=== PATIENT | male | born 1995 | race Caucasian/White ===

== ENCOUNTER 2024-03-06 12:32 | Emergency (ER) | payer OTHER, SELFPAY ==
--- NOTE | ~2024-03-06 | XR_ITS ---
EXAMINATION: XR CHEST CLINICAL INFORMATION: Shortness of breath COMPARISON: None available. TECHNIQUE: 2 views of the chest were obtained. FINDINGS: Cardiomediastinal silhouette is stable and normal. No abnormal tracheal deviation. There is mild hyperinflation of the lungs as best seen on the lateral view with increased retrosternal lucency. The lungs otherwise however essentially appear clear. No evidence of focal consolidation, changes of congestion, pleural effusions or pneumothorax. Regional skeleton is intact. Visualized upper abdomen is unremarkable. XR/XR chest 2V IMPRESSION: No acute pulmonary process.
[2024-03-06 12:36] VITALS: BP 155/83; BP 195/93; PULSE 88; PULSE 90; RESP 18; TEMP 36.8; O2SAT 100; O2SAT 98; BMI 32.1
--- NOTE | 2024-03-06 12:40 | ED.ANXIETY ---
HPI - Anxiety General Chief Complaint: Anxiety Stated Complaint: SOB, PANIC ATTACK Time Seen by Provider: 03/06/24 12:39 Source: patient and EMS Mode of arrival: EMS Limitations: no limitations History of Present Illness ED Provider: Trinity Beltran APRN HPI narrative: 28 yo male with history of hypertension here with complaints of episode of shortness of breathing, racing heart, numbness/tingling in hands/feet while sitting down which lasted for about 15-20 minutes and is now resolved. No associated chest pain, dizziness, headache, vomiting, Had similar episode in November. Followed up with his PCP. [place] that his heart rate was lower and so his metoprolol dose was decreased to 25mg orally. Has felt fine since then. denies any alcohol, tobacco or drug use. Denies recent stressors. Related Data Allergies Allergy/AdvReac Type Severity Reaction Status Date / Time No Known Allergies Allergy Verified 03/06/24 12:40 Review of Systems Review of Systems: Yes all other systems are reviewed and are negative Constitutional: Constitutional: Reports no additional constitutional complaints, Denies body ache(s), Denies chills, Denies fever(s), Denies headache(s) and Denies weakness Eyes: Eyes: Reports no additional eye complaints and Denies change in vision ENT: Reports system reviewed and no additional complaints, except as documented, Denies dizziness, Denies headache(s), Denies nasal congestion, Denies nasal discharge and Denies neck pain Cardiovascular: Cardiovascular: Reports no additional cardiovascular complaints, Denies chest pain, Denies leg edema, Reports palpitations and Reports dyspnea Respiratory: Respiratory: Reports no additional respiratory complaints, Denies cough and Reports dyspnea Gastrointestinal: Gastrointestinal: Reports no additional gastrointestinal complaints, Denies abdominal pain, Denies diarrhea, Denies nausea and Denies vomiting Genitourinary: Genitourinary: Denies urinary incontinence Musculoskeletal: Musculoskeletal: Reports no additional musculoskeletal complaints, Denies back pain, Denies arthralgias, Denies joint swelling, Denies neck pain, Reports numbness and Reports tingling Integumentary/Breasts: Skin/Breast: Reports system reviewed and no additional complaints, except as docu and Denies rash Neurologic: Reports system reviewed and no additional complaints, except as documented, Denies Abnormal speech present, Denies dizziness, Denies headache(s), Reports numbness, Reports tingling and Denies weakness Endocrine: Endocrine: Reports palpitations [facility] Past Medical History Attestation statement: The following information was validated with the patient. Source: old records reviewed and nursing notes reviewed Social History Social History Advance Directives: No Advance Directives Information Provided: No Do you have a plan to hurt others: No Plan Physical Exam Vital Signs: Vital Signs: Last Vital Signs Temp 98.3 F 03/06/24 15:34 Pulse 80 03/06/24 15:34 Resp 16 03/06/24 15:34 BP 130/70 03/06/24 15:34 Pulse Ox 97 03/06/24 15:34 O2 Del Method Room Air 03/06/24 15:34 BMI result Body Mass Index 32.1 Const: General: cooperative, healthy appearing, comfortable and no acute distress Orientation/consciousness: patient oriented x3 Limitations: no limitations HEENT: Head: Yes normal to inspection Ears: hearing grossly normal bilaterally General nose exam: Normal external nose present Face and sinus: Yes normal facial exam Mouth: Normal oral and palatal mucosa present Throat: Yes posterior oropharynx normal Eyes: General: appearance normal, both eyes and all related structures Pupils: Equal, round and reactive pupils present Neck: Neck: Yes normal visual inspection Chest: Chest palpation & inspection: normal inspection of the chest Resp: Effort & Inspection: normal respiratory effort Auscultation: clear to auscultation bilaterally Cardio: Rate: regular rate Rhythm: regular rhythm Peripheral pulses: Peripheral pulses 2+ throughout GI: Inspection: Yes normal to inspection Palpation (GI): Soft to palpation and nontender Auscultation: normal bowel sounds Back/Spine/Pelvis: Thoracic/Lumbar Spine: thoracic and lumbar spine normal to inspection Skin: General skin exam: no rashes or lesions noted Neuro: General: patient oriented x3, no focal motor deficits and normal sensation to monofilament Cranial nerves: Yes Equal, round and reactive pupils present Cognition (Neuro): normal cognition Speech: No Abnormal speech present Gait exam (Neuro): Normal gait present Motor exam (neuro): 5/5 motor strength present throughout Extrem: General: Yes normal to inspection, Yes no pedal edema and Yes no calf tenderness Course Course Course Narrative: Patient has had 2- troponins has had a nonischemic EKG and workup since being here in the emergency room. He has felt well on his arrival and has had no additional symptoms since being here. I will discharge him home and have him follow up outpatient with primary care doctor. Reviewed worrisome signs and symptoms of when to return to the emergency room. Comfortable plan for discharge home Medical Decision Making Medical Decision Making [facility] Narrative: 28 yo male with history of hypertension here with complaints of episode of shortness of breathing, racing heart, numbness/tingling in hands/feet while sitting down which lasted for about 15-20 minutes and is now resolved. No associated chest pain, dizziness, headache, vomiting, Had similar episode in November. Followed up with his PCP. [place] that his heart rate was lower and so his metoprolol dose was decreased to 25mg orally. Has felt fine since then. denies any alcohol, tobacco or drug use. Denies recent stressors. On arrival all s/s are resolved.VSS. Will obtain labs, EKG, CXR Differential Diagnosis Differential Diagnoses: The differential diagnosis associated with the presentation includes Anxiety Doubt ACS with atypical HPI, 2- troponins and a nonischemic EKG Doubt PE with perc 0 Doubt aortic dissection with gradual onset of symptoms, intermittent symptoms which have improved with time Doubt PTX with unremarkable chest x-ray and clear lung sounds Doubt pericarditis or myocarditis with normal EKG and normal troponin Admission/Observation Consideration of admission/observation: Escalation of care including admission/observation considered History of present illness is atypical for ACS with a heart score that is 0 so I do not believe that inpatient hospitalization or Cardiology consultation is necessary Lab Data [facility] Lab Attestation statement: I reviewed the patient's lab results. 03/06/24 13:23 03/06/24 13:23 Labs: Lab Results 03/06/24 03/06/24 Range/Units 13:23 15:40 WBC 6.7 (4.8-10.8) X10*3/uL RBC 5.14 (4.60-5.80) X10*6/uL Hgb 16.0 (14.0-18.0) g/dl Hct 44.3 (42.0-52.0) % MCV 86.2 (80.0-98.0) fL MCH 31.1 (27.0-33.0) pg MCHC 36.1 H (31.0-36.0) g/dl RDW 12.4 (11.0-16.0) % Plt Count 332 (160-400) X10*3/uL MPV 8.9 L (9.4-12.4) fL Immature Gran % (Auto) 0.3 (0.0-0.4) % Neut % (Auto) 66.0 (45-73) % Lymph % (Auto) 21.7 (20-40) % Gem % (Auto) 8.9 (2-11) % Eos % (Auto) 1.6 (0-4) % Baso % (Auto) 1.5 (0-2) % Lymph # (Auto) 1.5 (1.2-4.9) X10*3/uL Gem # (Auto) 0.6 (0.1-1.2) X10*3/uL Eos # (Auto) 0.1 (0.0-0.4) X10*3/uL Baso # (Auto) 0.1 (0.0-0.2) X10*3/uL Abs Immat Gran (auto) 0.02 (0.00-0.03) X10*3/uL Absolute Neuts (auto) 4.5 (2.0-8.3) x10*3/uL Absolute Nucleated RBC 0.000 (0.0-0.012) X10*3/uL Nucleated RBC % (auto) 0.0 (0.0-0.2) /100WBC Sodium 140 (135-145) mmol/L Potassium 3.9 (3.3-5.1) mmol/L Chloride 106 (96-108) mmol/L Carbon Dioxide 26 (22-29) mmol/L Anion Gap 12 (12-20) BUN 17 H (9-16) mg/dL Creatinine 1.35 (0.5-1.4) mg/dL Estim Creat Clear Calc 110.0 Estimated GFR > 60 Random Glucose 101 (60-115) mg/dL Calcium 10.2 (8.4-10.2) mg/dL Magnesium 2.0 (1.6-2.6) mg/dL Total Bilirubin 1.3 H (0.0-1.0) mg/dL Direct Bilirubin 0.4 (0.0-0.5) mg/dL AST 21 (5-37) U/L ALT 27 (0-40) U/L Alkaline Phosphatase 86 (39-117) U/L Troponin I High Sens < 2.7 < 2.7 (<3.5-35.0) ng/L Total Protein 7.3 (6.5-8.0) g/dL Albumin 4.5 (3.5-5.0) g/dL Independent Interpretation I performed an independent interpretation of an: EKG and Plain X-Ray Interpretation: I independently reviewed the EKG which shows normal sinus rhythm with a rate of 75, normal AR, normal QRS normal QT I independently reviewed the CXR and agree with the rad report Radiology Impression Discussion of test interpretation with radiology: I have reviewed the radiologist's reading. Radiologist Impression: [place] [id number] XRay Report Signed Patient: Markie Armas MR#: [id number] : 1995 Acct:[id number] Age/Sex: 28 / M ADM Date: 03/06/24 Loc: .ED Attending Dr: Ordering Physician: Trinity Joyce NP Date of Service: 03/06/24 Procedure(s): XR chest 2V Accession Number(s): [id number] cc: MJ LY MD; Trinity Joyce NP~ EXAMINATION: XR CHEST CLINICAL INFORMATION: Shortness of breath COMPARISON: None available. TECHNIQUE: 2 views of the chest were obtained. FINDINGS: Cardiomediastinal silhouette is stable and normal. No abnormal tracheal deviation. There is mild hyperinflation of the lungs as best seen on the lateral view with increased retrosternal lucency. The lungs otherwise however essentially appear clear. No evidence of focal consolidation, changes of congestion, pleural effusions or pneumothorax. Regional skeleton is intact. Visualized upper abdomen is unremarkable. XR/XR chest 2V IMPRESSION: No acute pulmonary process. Independent Historian Clinical information obtained from an independent historian. History obtained from or confirmed by: Parent and EMS Tests considered The following testing was considered but not selected: Perc 0, no need for CTA imaging Discharge Plan Discharge Clinical Impression: Shortness of breath Patient Disposition: Home, Self-Care Instructions: Shortness of Breath (ED) Additional Instructions: Your EKG is normal. Your lab work including 2 sets of cardiac enzymes are negative. Your chest x-ray is normal. Please follow-up with your primary care doctor outpatient. Please return for any worsening symptoms or additional concerns Referrals: Mj Ly MD [Primary Care Provider] - 1 week Print Language: Guyanese
--- NOTE | 2024-03-06 12:41 | ECG_ITS ---
Test Reason : CHEST PAIN Blood Pressure : / mmHG Vent. Rate : 075 BPM Atrial Rate : 075 BPM P-R Int : 134 ms QRS Dur : 094 ms QT Int : 372 ms P-R-T Axes : 039 017 021 degrees QTc Int : 415 ms Normal sinus rhythm with sinus arrhythmia Normal ECG No previous ECGs available Referred By: Trinity Beltran Electronically Signed By:FABIO PETER MD
[2024-03-06 13:31] LABS: MANUAL DIFF FLAG NO
[2024-03-06 13:33] LABS: Basophils Absolute Auto 0.1 X10*3/uL (0.0-0.2); Basophils Percent Auto 1.5 % (0-2); Eosinophils Absolute Auto 0.1 X10*3/uL (0.0-0.4); Eosinophils Percent Auto 1.6 % (0-4); Hematocrit 44.3 % (42.0-52.0); Imm Gran Abs Auto 0.02 X10*3/uL (0.00-0.03); Imm Gran Pct Auto 0.3 % (0.0-0.4); Lymphocytes Absolute Auto 1.5 X10*3/uL (1.2-4.9); Lymphocytes Percent Auto 21.7 % (20-40); Mean Corpuscular HGB Conc 36.1 g/dl (31.0-36.0); Mean Corpuscular Hemoglobin 31.1 pg (27.0-33.0); Mean Corpuscular Volume 86.2 fL (80.0-98.0); Mean Platelet Volume 8.9 fL (9.4-12.4); Monocytes Absolute Auto 0.6 X10*3/uL (0.1-1.2); Monocytes Percent Auto 8.9 % (2-11); Neutrophils Absolute Auto 4.5 x10*3/uL (2.0-8.3); Platelet Count 332 X10*3/uL (160-400); Red Blood Count 5.14 X10*6/uL (4.60-5.80); Red Cell Distribution Width 12.4 % (11.0-16.0); White Blood Count 6.7 X10*3/uL (4.8-10.8)
[2024-03-06 13:48] LABS: Alanine Aminotransferase 27 U/L (0-40); Albumin Level 4.5 g/dL (3.5-5.0); Alkaline Phosphatase 86 U/L (39-117); Anion Gap 12 (12-20); Aspartate Amino Transferase 21 U/L (5-37); Bilirubin Direct 0.4 mg/dL (0.0-0.5); Bilirubin Total 1.3 mg/dL (0.0-1.0); Blood Urea Nitrogen 17 mg/dL (9-16); Calcium 10.2 mg/dL (8.4-10.2); Carbon Dioxide 26 mmol/L (22-29); Chloride 106 mmol/L (96-108); Estimated Glomerular Filt Rate > 60; Glucose Random 101 mg/dL (60-115); Potassium 3.9 mmol/L (3.3-5.1); Sodium 140 mmol/L (135-145); Total Protein 7.3 g/dL (6.5-8.0)
[2024-03-06 13:57] LABS: Troponin-I High Sensitivity < 2.7 ng/L (<3.5-35.0)
[2024-03-06 15:34] VITALS: BP 130/70; PULSE 80; RESP 16; TEMP 36.8; O2SAT 97
[2024-03-06 16:17] LABS: Troponin-I High Sensitivity < 2.7 ng/L (<3.5-35.0)
[2024-03-06 16:43] VITALS: BP 133/77; PULSE 64; RESP 16; TEMP 36.7; O2SAT 96
== END 2024-03-06 16:51 | disposition home or self-care (01) ==
PROVIDERS: Nurse Practitioner Family; Emergency Provider Emergency Medicine; PCP Internal Medicine
DX: R06.02 Shortness of breath (principal); R00.2 Palpitations; F41.0 Panic disorder [episodic paroxysmal anxiety]; I49.8 Other specified cardiac arrhythmias; I10 Essential (primary) hypertension; Z79.899 Other long term (current) drug therapy
CPT/HCPCS: 36415; 71046; 80048; 80076; 83735; 84484; 85025; 93005; 99284

== ENCOUNTER → 2024-03-06 12:41 | Outpatient (BNV) | payer OTHER, SELFPAY | PROVIDERS: Emergency Provider Emergency Medicine; PCP Internal Medicine; Visit Provider Internal Medicine Cardiovascular Disease | DX: R07.9 Chest pain, unspecified (principal) | CPT/HCPCS: 93010 ==

== ENCOUNTER 2024-03-28 08:07 | Emergency (ER) | payer OTHER, SELFPAY ==
--- NOTE | 2024-03-28 08:11 | ED_ITS ---
HPI - General Adult General Chief complaint: Nausea/Vomiting/Diarrhea Stated complaint: DIZZY,NAUSEA,FELT FAINT PER EMS Time Seen by Provider: 03/28/24 08:11 History of Present Illness ED Provider: Lobo VALDEZ narrative: The patient is a 28-year-old male with a history of hypertension. He is on 5 mg of amlodipine daily and he has also been on 25 mg of metoprolol succinate daily. He has been on these medications for a few years. Additionally he has been restarted on Lexapro. The patient was seen in the emergency department 3 weeks ago for an episode of palpitations and other symptoms. He had a negative workup. I believe his PCP thought that this might have been a panic attack and therefore started the Lexapro. This morning the patient was getting ready to take a shower when he felt lightheaded and nauseated. He felt as if he might pass out. He sat down and he said that his vision seemed a narrow. He says that he felt his pulse and he thought that it was going extremely slowly. He ultimately became nauseated and vomited and ultimately felt better. During this time his girlfriend had called 911. An ambulance arrived and brought him to the emergency room. He is feeling much better on arrival in the emergency room. He says this episode is fairly similar to the episode he had 3 weeks ago but not identical. He did not vomit on the previous occasion. He denies any significant chest pain or shortness of breath. No headache. Related Data Allergies Allergy/AdvReac Type Severity Reaction Status Date / Time No Known Allergies Allergy Verified 03/28/24 08:25 Review of Systems 2 Review of Systems: Yes all other systems are reviewed and are negative [facility] Social History Social History Advance Directives: No Advance Directives Information Provided: No Physical Exam ED Vital Signs: Vital Signs - 24 hr 03/28/24 08:22 03/28/24 09:39 03/28/24 09:46 Temperature 98.1 F 98 F Pulse Rate 71 67 Respiratory Rate 16 16 Blood Pressure 150/92 H 129/85 129/85 Pulse Oximetry 99 99 Oxygen Delivery Method Room Air Room Air BMI result Body Mass Index 32.1 Const Other: The patient has a large 28-year-old male who was awake and alert and who does not look in acute distress. Orientation/consciousness: patient oriented x3 HENMT Head: Yes normal to inspection Face and sinus: Yes normal facial exam Mouth: Normal oral and palatal mucosa present and moist mucous membranes Eyes General: appearance normal, both eyes and all related structures Conjunctivae: conjunctivae normal EOM: EOMs intact bilaterally Neck Neck: Yes no JVD Resp Effort & Inspection: normal respiratory effort Auscultation: clear to auscultation bilaterally Cardio Rate: regular rate Rhythm: regular rhythm Heart sounds: S1 normal heart sound present and S2 normal heart sound present GI Other: Abdomen is soft and nontender Neuro General: patient oriented x3 Cranial nerves: Yes CN's II-XII intact bilaterally Motor exam (neuro): 5/5 motor strength present throughout Extrem General: Yes full ROM, Yes no pedal edema and Yes no calf tenderness Medications Administered Discontinued Medications Generic Name Dose Route Start Last Admin Trade Name Freq PRN Reason Stop Dose Admin Amlodipine Besylate 5 mg 03/28/24 08:25 03/28/24 09:39 Amlodipine Besylate 5 Mg Tablet PO 03/28/24 08:26 5 mg ONCE ONE Administration Protocol Sodium Chloride 1,000 mls @ 999 mls/hr 03/28/24 08:30 03/28/24 09:46 Ns IV 03/28/24 09:30 Not Given .Q1H1M [facility] Medical Decision Making Medical Decision Making [facility] Narrative: The patient essentially asymptomatic at arrival in the emergency department aside from possibly some lingering nausea. No chest pain or shortness of breath. Vital signs are stable. EKG is normal. The patient seems to have had an episode of near-syncope. The patient states that he thinks he was quite bradycardic during the episode. Whether this was some kind of vasovagal episode without a clear trigger or whether this was some kind of a panic episode is hard to say for sure. He is not describing any symptoms that would make me worry about a more ominous cardiac or vascular or pulmonary problem. The patient's EKG is normal, basic metabolic panel and CBC are unremarkable. I think the patient may be discharged to follow up with his regular doctor. I am advising the patient that it would be reasonable for him to stop his metoprolol since he felt he was quite bradycardic during this near syncopal episode. Additionally he should discuss possibly getting a Holter monitor. Lab Data 03/28/24 08:36 03/28/24 08:36 Labs: Lab Results 03/28/24 Range/Units 08:36 WBC 8.2 (4.8-10.8) X10*3/uL RBC 5.21 (4.60-5.80) X10*6/uL Hgb 16.4 (14.0-18.0) g/dl Hct 45.1 (42.0-52.0) % MCV 86.6 (80.0-98.0) fL MCH 31.5 (27.0-33.0) pg MCHC 36.4 H (31.0-36.0) g/dl RDW 12.1 (11.0-16.0) % Plt Count 287 (160-400) X10*3/uL MPV 9.1 L (9.4-12.4) fL Immature Gran % (Auto) 0.2 (0.0-0.4) % Neut % (Auto) 70.2 (45-73) % Lymph % (Auto) 18.1 L (20-40) % [place] % (Auto) 8.2 (2-11) % Eos % (Auto) 2.2 (0-4) % Baso % (Auto) 1.1 (0-2) % Lymph # (Auto) 1.5 (1.2-4.9) X10*3/uL [place] # (Auto) 0.7 (0.1-1.2) X10*3/uL Eos # (Auto) 0.2 (0.0-0.4) X10*3/uL Baso # (Auto) 0.1 (0.0-0.2) X10*3/uL Abs Immat Gran (auto) 0.02 (0.00-0.03) X10*3/uL Absolute Neuts (auto) 5.7 (2.0-8.3) x10*3/uL Absolute Nucleated RBC 0.000 (0.0-0.012) X10*3/uL Nucleated RBC % (auto) 0.0 (0.0-0.2) /100WBC Sodium 140 (135-145) mmol/L Potassium 3.9 (3.3-5.1) mmol/L Chloride 106 (96-108) mmol/L Carbon Dioxide 24 (22-29) mmol/L Anion Gap 14 (12-20) BUN 17 H (9-16) mg/dL Creatinine 1.08 (0.5-1.4) mg/dL Estim Creat Clear Calc 137.5 Estimated GFR > 60 Random Glucose 97 (60-115) mg/dL Calcium 9.6 (8.4-10.2) mg/dL Magnesium 2.3 (1.6-2.6) mg/dL Independent Interpretation I performed an independent interpretation of an: EKG Interpretation: EKG at 09/08/2007 shows normal sinus rhythm at 65 beats per minute. It is a normal EKG. No significant change from previous EKG Discharge Plan Discharge Clinical Impression: Near syncope Patient Disposition: Home, Self-Care Additional Instructions: You had what I think was an episode of near-syncope today. Near-syncope means ?almost fainted. Since you felt that your heart rate was very low during this episode I think it would be reasonable for you to stop your metoprolol at the moment. Please plan on contacting your primary care doctor's office to discuss this further. I think it would be reasonable talk to your doctor about getting a wearable engine monitor. This is often called a Holter monitor. Please keep your appointment with your regular doctor that you have scheduled soon. Return to the emergency room if worse Referrals: Mj Pereyra MD [Primary Care Provider] - (Near-syncope) Interventions: ED Discharge Assessment Last Done: 03/28/24 09:46 Discharge Date/Time: 03/28/24 09:49 Print Language: Japanese
[2024-03-28 08:22] VITALS: BP 129/69; BP 150/92; PULSE 71; PULSE 72; RESP 16; TEMP 36.7; O2SAT 97; O2SAT 99; BMI 32.1
--- NOTE | 2024-03-28 08:24 | ECG_ITS ---
Test Reason : near syncope Blood Pressure : / mmHG Vent. Rate : 065 BPM Atrial Rate : 065 BPM P-R Int : 148 ms QRS Dur : 096 ms QT Int : 398 ms P-R-T Axes : 063 016 026 degrees QTc Int : 413 ms Normal sinus rhythm Normal ECG When compared with ECG of 06-MAR-2024 12:41, No significant change was found Referred By: Nigel Diamond Electronically Signed By:DINORA MATTHEW
[2024-03-28 08:41] LABS: MANUAL DIFF FLAG NO
[2024-03-28 08:43] LABS: Basophils Absolute Auto 0.1 X10*3/uL (0.0-0.2); Basophils Percent Auto 1.1 % (0-2); Eosinophils Absolute Auto 0.2 X10*3/uL (0.0-0.4); Eosinophils Percent Auto 2.2 % (0-4); Hematocrit 45.1 % (42.0-52.0); Hemoglobin 16.4 g/dl (14.0-18.0); Imm Gran Abs Auto 0.02 X10*3/uL (0.00-0.03); Imm Gran Pct Auto 0.2 % (0.0-0.4); Lymphocytes Absolute Auto 1.5 X10*3/uL (1.2-4.9); Lymphocytes Percent Auto 18.1 % (20-40); Mean Corpuscular HGB Conc 36.4 g/dl (31.0-36.0); Mean Corpuscular Hemoglobin 31.5 pg (27.0-33.0); Mean Corpuscular Volume 86.6 fL (80.0-98.0); Mean Platelet Volume 9.1 fL (9.4-12.4); Monocytes Absolute Auto 0.7 X10*3/uL (0.1-1.2); Monocytes Percent Auto 8.2 % (2-11); Neutrophils Absolute Auto 5.7 x10*3/uL (2.0-8.3); Neutrophils Percent Auto 70.2 % (45-73); Platelet Count 287 X10*3/uL (160-400); Red Blood Count 5.21 X10*6/uL (4.60-5.80); Red Cell Distribution Width 12.1 % (11.0-16.0); White Blood Count 8.2 X10*3/uL (4.8-10.8)
--- OUTSIDE RECORDS SUMMARY | 2024-03-28 08:47 | XMS_ITS | Continuity of Care Document ---
Author Organization [facility] ter Address [address] [place] [id number] Care Team Providers Care Metallography Teacher Name Role Phone Jordy DAMON, Troy Rosen Primary Care Physician [phone] Encounter [facility] Date(s): 09/09/19 - 09/09/[address] [address] Attending Physician: Hafsa DAMON, Mj James Allergies, Adverse Reactions, Alerts Substance Reaction Severity Status NKA Active
--- OUTSIDE RECORDS SUMMARY | 2024-03-28 08:47 | XMS_ITS | Continuity of Care Document ---
Author Organization [facility] Address [address] [place] [address]- Care Team Providers Care Dispatcher Radio Name Role Phone Mj Pereyra MD Primary Care Physician Encounter [facility] Date(s): 11/12/23 - 11/12/[address] [address]- Discharge Disposition: A-D/C Home Attending Physician: Marvin Cameron MD Admitting Physician: Marvin Cameron MD Referring Physician: Not on Staff, Referring MD Allergies, Adverse Reactions, Alerts No Known Allergies Medications amLODIPine 5 mg oral tablet 5 mg, 1, tablet, By Mouth, Daily, # 30 tablet, Refills 0, Tot. Refills 0, Maintenance, 09/29/21 18:08:00 EST, Route to Pharmacy Electronically, [facility]/pharmacy #[id number], Partial fill upon patient request if the prescription is for a schedule II opioid drug.... Start Date: 09/29/21 Status: Ordered metoprolol 50 mg oral tablet 50 mg, 1, tablet, By Mouth, Daily, Refills 0, Maintenance, 09/29/21 16:20:00 EST, Partial fill uponpatient request if the prescription is for a schedule II opioid drug. Start Date: 09/29/21 Status: Ordered simvastatin 20 mg oral tablet 20 mg, 1, tablet, By Mouth, Daily at bedtime, Refills 0, Maintenance, 09/29/21 16:20:00 EST, Partial fill upon patient request if the prescription is for a schedule II opioid drug. Start Date: 09/29/21 Status: Ordered Vital Signs Most recent to oldest [Reference Range]: 1 2 3 Height 188 cm (11/12/23 3:54 PM) Weight 115.6 kg (11/12/23 3:54 PM) Oxygen Saturation [94-100 %] 100 % (11/12/23 5:26 PM) 99 % (11/12/23 3:54 PM) 98 % (11/12/23 3:54 PM) Pulse Rate [55-90 bpm] 58 bpm (11/12/23 5:26 PM) 65 bpm (11/12/23 3:54 PM) 66 bpm (11/12/23 3:54 PM) Blood Pressure [90-138/55-84 mm Hg] 144/83mm Hg *H* (11/12/23 5:26 PM) 161/96mm Hg *H* (11/12/23 3:54 PM) Respiratory Rate [16-30 br/min] 16 br/min (11/12/23 5:26 PM) 18 br/min (11/12/23 3:54 PM) Temperature [96.8-100.4 DegF] 97.8 DegF (11/12/23 3:54 PM) Mode of Delivery (Oxygen) Room air (11/12/23 5:26 PM) Room air (11/12/23 3:54 PM) Blood pressure sites Arm, left (11/12/23:26 PM) Arm, left (11/12/23 3:54 PM) Temperature Route Temporal (11/12/23 3:54 PM) Dry Weight 115.6 kg (11/12/23 3:54 PM) Weight Obtained Via Standing scale (11/12/23 3:54 PM) Social History Social History Type Response Smoking Status Never (less than 100 in lifetime) entered on: 09/29/21 Sex Note * Jeffry Tavarez: PERFORM Event Display: Patient Education Leaflets Authored Date: [id number] Peripheral Neuropathy ?? [id number] Peripheral Neuropathy Peripheral neuropathy is a set of symptoms caused by damage to the peripheral nerves. These nerves are in parts of the body beyond the brain and spinal cord. The condition often affects the arms or legs. It causes a change in physical feeling. Symptoms include weakness in the muscles, tingling, numbness, or shooting pains. Symptoms may be more common at night. Your skin may be extra sensitive to light touch or temperature changes. Peripheral neuropathy may be caused by: ??? Complications from a chronic disease such as diabetes ??? Infections caused by viruses or bacteria ??? Autoimmune disorders ??? Cancer ??? Chemo medicines to treat cancer ??? Injuries A lack of certain vitamins may also lead to it. It may also be caused by exposure to certain illegal drugs or chemicals. Several forms of neuropathy run in families (hereditary). Home care ??? Tell your healthcare provider about all medicines you take. This includes prescription and nlxk-zzq-lfwsmkq medicines, vitamins, and herbs. Ask if any of the medicines may be causing your problems. Don't make any changes to prescription medicines without talking with your healthcare provider first. ??? You may be prescribed medicines to help ease the tingling feeling or for pain. Take all medicines as directed. ??? A numb hand or foot may be more likely to be injured. To help protect it: o Always use oven mitts. o Test water temperature with an unaffected hand or foot. o Use caution when trimming nails. File sharp areas. o Wear shoes that fit well to prevent pressure points, blisters, and ulcers. o Inspect your hands and feet carefully at least once a week. This includes thesoles of your feet and between the toes. If you see red areas, sores, or other problems, tell your healthcare provider. ?? Follow-up care Follow up with your healthcare provider as advised. You may need more testing or assessment. ?? When to seek medical advice Call your healthcare provider right away if any of the following occur: ??? Redness, swelling, cracking, or ulcer on any numb area, especially the feet ??? New symptoms of numbness or muscle weaknessnumbness ??? Loss of bowel or bladder control ??? Slurred speech, confusion, or trouble speaking, walking, or seeing ?? Last Reviewed Date: 2021 ?? [id number] [employer]. All rights reserved. This information is not intended as a substitute for professional medical care. Always follow your healthcare professional's instructions. ?? Patient Care team information Care Team Personnel Name: Mj Pereyra MD Position: Reference Physician Member Role: PCP Address: Address: [address] [place] [address], [place], [place] [address] Care Team Related Persons Name: CHARISSA HARPER Address: home [address] [place] [address] Name: CHARISSA HARPER Address: [employer] Address: home [address] [place] [address] [place] Name: JOHNNIE HARPER Address: [place] [id number]
--- OUTSIDE RECORDS SUMMARY | 2024-03-28 08:47 | XMS_ITS | Continuity of Care Document ---
Author Organization [facility] Address [address] [place] [address]- Care Team Providers Care Business Management Consultant Name Role Phone Mj Pereyra MD Primary Care Physician Encounter [facility] Date(s): 04/17/20 - 07/19/[address] [address] Discharge Disposition: A-D/C Home Attending Physician: Mj Pereyra MD Admitting Physician: Mj Pereyra MD Referring Physician: Lesvia Manzano MD, V Allergies, Adverse Reactions, Alerts Substance Reaction Severity Status NKA Active Medications amLODIPine 5 mg oral tablet 5 mg, 1, tablet, By Mouth, Daily in AM, Refills 0, Maintenance, 03/28/20 14:48:00 EDT Start Date: 03/28/20 Status: Ordered
--- OUTSIDE RECORDS SUMMARY | 2024-03-28 08:47 | XMS_ITS | Continuity of Care Document ---
Author Organization [facility] Address [address] [place] [address]- Care Team Providers Care Multiplex Operator Name Role Phone Hafsa DAMON, Mj James Primary Care Physician Encounter [facility] Date(s): 01/17/24 - 01/18/[address] [address]- Discharge Disposition: A-D/C Home Attending Physician: Josefina Cowan MD Admitting Physician: Josefina Cowan MD Referring Physician: Not on Staff, Referring MD Allergies, Adverse Reactions, Alerts No Known Allergies Medications amLODIPine 5 mg oral tablet 5 mg, 1, tablet, By Mouth, Daily, # 30 tablet, Refills 0, Tot. Refills 0, Maintenance, 09/29/21 18:08:00 EST, Route to Pharmacy Electronically, [facility]/pharmacy #[id number], Partial fill upon patient request if the prescription is for a schedule II opioid drug.... Start Date: 09/29/21 Status: Ordered metoprolol 50 mg oral tablet 50 mg, 1, tablet, By Mouth, Daily, Refills 0, Maintenance, 09/29/21 16:20:00 EST, Partial fill uponpatient request if the prescription is for a schedule II opioid drug. 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 FINDINGS: Probable nondisplaced fracture of the fifth finger distal phalanx without intra- articular extension. No dislocation. Associated soft tissue swelling. IMPRESSION: Suspected nondisplaced fracture of the fifth digit distal phalanx. WSN: [id number] Ordering Physician: Vicente Sam Dictated By: David Martínez MD Dictated Date/Time: 01/17/24 11:23 p Reviewed By: David Martínez MD Signed By: David Martínez MD Signed Date/Time: 01/17/24 11:23 pm Transcribed By: PAPA Transcribed Date/Time: 01/17/24 11:21 pm Vital Signs Most recent to oldest [Reference Range]: 1 2 Height 188 cm (01/18/24 3:42 AM) 188 cm (01/17/24 10:42 PM) Weight 120.3 kg (01/17/24 10:42 PM) Oxygen Saturation [94-100 %] 98 % (01/18/24 3:42 AM) 100 % (01/17/24 10:42 PM) Pulse Rate [55-90 bpm] 61 bpm (01/18/24 3:42 AM) 84 bpm (01/17/24 10:42 PM) Blood Pressure [90-138/55-84 mm Hg] 147/ 88mm Hg *H* (01/18/24 3:42 AM) 163/94mm Hg *H* (01/17/24 10:42 PM) Respiratory Rate [16-30 br/min] 18 br/mi n (01/17/24 10:42 PM) Temperature [96.8-100.4 DegF] 98.1 DegF (01/18/24 3:42 AM) 98.6 DegF (01/17/24 10:42 PM) Mode of Delivery (Oxygen) Room air (01/18/24 3:42 AM) Room air (01/17/24 10:42 PM) Blood pressure sites Arm, left (01/18/24 3:42 AM) Arm, left (01/17/24 10:42 PM) Temperature Route Oral (01/18/24 3:42 AM) Oral (01/17/24 10:42 PM) Dry Weight 120.3 kg (01/17/24 10:42 PM) Weight Obtained Via Standing scale (01/17/24 10:42 PM) Dry Weight Obtained Via Standing scale (01/17/24 10:42 PM) Social History Social History Type Response Smoking Status Never (less than 100 in lifetime) entered on: 09/29/21 Sex Note * Chapo DAMON, Josefina iJménez: PERFORM Event Display: Patient Education Leaflets Authored Date: [id number] Broken Finger,??Closed ?? [id number] Broken Finger,??Closed You have a broken finger (fracture). This causes local pain, swelling, and bruising. This injury usually takes??about??4 to 6 weeks??to heal, but can take longer in some cases. Finger injuries are often treated with a splint or cast, or by taping the injured finger to the next one (cherelle taping). This protects the injured finger and holds the bone in position while it heals. More serious fractures may need surgery. This would be done by an orthopedic surgeon. This is a surgeon who specializes in treating bone, muscle, joint, and tendon problems. If the fingernail has been severely injured, it will probably fall off in 1 to 2 weeks. A new fingernail will usually start to grow back within a month. Home care Follow these guidelines when caring for yourself at home: ??? Keep your hand raised (elevated) to reduce pain and swelling. When sitting or lying down, keep your arm above the level of your heart. You can do this by placing your arm on a pillow that rests on your chest or on a pillow at your side. This is most important during the first 2 days (48 hours) after the injury. ??? Put an ice pack on the injured area. Do this for 20 minutes every 1 to 2 hours the first day for pain relief. To make anice pack, put ice cubes in a plastic bag that seals at the top. Wrap the bag in a thin towel. As the ice melts, be careful that the cast or splint doesn???t get wet. Keep using the ice pack 3 to 4 times a day until the pain and swelling go away. ??? Keep the cast or splint completely dry at all times. Bathe with your cast or splint out of the water. Protect it with a large plastic bag, rubber-banded or taped at the top end. If a fiberglass cast or splint gets wet, you can dry it with a health sciences department chair on a cool setting. ??? If cherelle tape was put on and it becomes wet or dirty, change it. You may replace it with paper, plastic, or cloth tape. Cloth tape and paper tapes must be kept dry. Keep the cherelle tape in place for at least 4 weeks, or as instructed by your healthcare provider. ??? You may use acetaminophen or ibuprofen to control pain unless another pain medicine was prescribed. If you swan ve chronic liver or kidney disease, talk with your healthcare provider before using these medicines. Also talk with your provider if you???ve had a stomach ulcer or digestive tract bleeding. ??? Don???t put creams or objects under the cast if you have itching. ?? Follow-up care Follow up with your healthcare provider as advised. This is to make sure the bone is healing the way it should. X-rays may be taken. You'll be told of any new findings that may affect your care. ?? When to get medical care Call your healthcare provider right away if any of these occur: ??? The plaster cast or splint becomes wet or soft ??? The cast or splint cracks ??? The fiberglass cast or splint stays wet for more than 24 hours ??? Pain or swelling gets worse ??? Redness, warmth, swelling, drainage from the wound,or bad odor from a cast or splint ??? Finger becomes more cold, blue, numb, or tingly ??? You can???t move your finger ??? The skin around the cast or splint becomes red or swollen ??? Fever of 100.4??F (38??C) or higher, or as advised by your provider ??? Chills ?? Last Reviewed Date: 2021 ?? [id number] [employer]. All rights reserved. This information is not intended as a substitute for professional medical care. Always follow your healthcare professional's instructions. ?? Patient Care team information Care Team Personnel Name: Mj Pereyra MD Position: Reference Physician Member Role: PCP Address: Address: [address] [place] [address], [address] Care Team Related Persons Name: CHARISSA HARPER Address: home [address] [place] [address] Name: CHARISSA HARPER Address: [employer] Address: [address] Name: JOHNNIE HARPER Address: [place] [address]
--- OUTSIDE RECORDS SUMMARY | 2024-03-28 08:47 | XMS_ITS | Continuity of Care Document ---
Author Organization [facility] Address [address] [facility], [address] d Floor, [address] [place] [address] Care Team Providers Care Tape Controlled Machine Stitcher Name Role Phone Mj Pereyra MD Primary Care Physician Encounter [facility] Date(s): 12/02/23 - 01/01/24 [facility] [address] [facility] [address]rd Floor, [address] [place] [id number] Allergies, Adverse Reactions, Alerts No Known Allergies Medications amLODIPine 5 mg oral tablet 5 mg, 1, tablet, By Mouth, Daily, # 30 tablet, Refills 0, Tot. Refills 0, Maintenance, 09/29/21 18:08:00 EST, Route to Pharmacy Electronically, [facility]/pharmacy #[id number], Partial fill upon patient request if the [...] opioid drug. Start Date: 09/29/21 Status: Ordered Social History Social History Type Response Smoking Status Never (less than 100 in lifetime) entered on: 09/29/21 Sex Patient Care team information Care Team Personnel Name: Mj Pereyra MD Position: Reference Physician Member Role: PCP Address: Address: [address] [place] [id number]- Care Team Related Persons Name: CHARISSA HARPER Address: home [address] [place] [id number] Name: CHARISSA HARPER Address: [employer] Address: home [address] [place] [address] Name: JOHNNIE HARPER Address: [place] [address]
--- OUTSIDE RECORDS SUMMARY | 2024-03-28 08:47 | XMS_ITS | Continuity of Care Document ---
Author Organization [facility] Address [address] [place] [address]- Care Team Providers Care Malt Liquors Sales Representative Name Role Phone Hafsa DAMON, Mj James Primary Care Physician Encounter [facility] [place] [place] Date(s): 10/18/20 - 11/17/20 [facility] [address] [place], [place] [address] Attending Physician: Margy Greenwood Admitting Physician: AdmMargy fried Referring Physician: Admtr ArRamiro Allergies, Adverse Reactions, Alerts Substance Reaction Severity Status NKA Active Medications amLODIPine 5 mg oral tablet 5 mg, 1, tablet, By Mouth, Daily in AM, Refills 0, Maintenance, 03/28/20 14:48:00 EDT Start Date: 03/28/20 Status: Ordered
--- OUTSIDE RECORDS SUMMARY | 2024-03-28 08:47 | XMS_ITS | Continuity of Care Document ---
Author Organization [facility] Address [address] [place] [address]- Care Team Providers Care Electronic Security Technician Name Role Phone Mj Pereyra MD Primary Care Physician Encounter [facility] Date(s): 09/29/21 - 09/29/[address] [address]- Encounter Diagnosis Anxiety(Final) - 09/29/21 Hypertension, uncontrolled(Final) - 09/29/21 Dyslipidemia, goal LDL below 100(Final) - 09/29/21 Morbid obesity(Final) - 09/29/21 Discharge Disposition: A-D/C Home Attending Physician: Chalino Tubbs MD Admitting Physician: Chalino Tubbs MD Referring Physician: Not on Staff, Referring MD Allergies, Adverse Reactions, Alerts No Known Allergies Medications amLODIPine 5 mg oral tablet 5 mg, Tablet, By Mouth, Once, STAT, 09/29/21 18:06:00 EST, Stop date 09/29/21 18:06:00 EST Start Date: 09/29/21 Stop Date: 09/29/21 Status: Completed amLODIPine 5 mg oral tablet 5 mg, 1, tablet, By Mouth, Daily, # 30 tablet, Refills 0, Tot. Refills 0, Maintenance, 09/29/21 18:08:00 EST, Route to Pharmacy Electronically, [facility]/pharmacy #[id number], Partial fill upon patient request if the [...] to oldest [Reference Range]: 1 2 Height 191 cm (09/29/21 4:19 PM) Weight 120.3 kg (09/29/21 4:19 PM) Pulse Rate [55-90 bpm] 87 bpm (09/29/21 4:19 PM) Blood Pressure [90-138/55-84 mm Hg] 154/ 92mm Hg *H* (09/29/21 6:16 PM) 156/94mm Hg *H* (09/29/21 4:19 PM) Respiratory Rate [16-30 br/min] 16 br/mi n (09/29/21 4:19 PM) Temperature [96.8-100.4 DegF] 98.3 DegF (09/29/21 4:19 PM) Temperature Route Oral (09/29/21 4:19 PM) Dry Weight 120.3 kg (09/29/21 4:19 PM) Weight Obtained Via Standing scale (09/29/21 4:19 PM) Social History Social History Type Response Smoking Status Never (less than 100 in lifetime) entered on: 09/29/21 Sex
--- OUTSIDE RECORDS SUMMARY | 2024-03-28 08:47 | XMS_ITS | Continuity of Care Document ---
Author Organization [facility] Address [address] [place] [address]- Care Team Providers Care Converter Supervisor Name Role Phone Hafsa DAMON, Mj James Primary Care Physician Encounter [facility] [place] Date(s): 07/17/20 - 08/16/[address] [address] Attending Physician: Margy Greenwood Admitting Physician: Admtr, Margy Referring Physician: Admtr, Ar8 Allergies, Adverse Reactions, Alerts Substance Reaction Severity Status NKA Active Medications amLODIPine 5 mg oral tablet 5 mg, 1, tablet, By Mouth, Daily in AM, Refills 0, Maintenance, 03/28/20 14:48:00 EDT Start Date: 03/28/20 Status: Ordered
[2024-03-28 08:56] LABS: Anion Gap 14 (12-20); Blood Urea Nitrogen 17 mg/dL (9-16); Calcium 9.6 mg/dL (8.4-10.2); Carbon Dioxide 24 mmol/L (22-29); Chloride 106 mmol/L (96-108); Creatinine Clr Calc Pharmacy 137.5; Estimated Glomerular Filt Rate > 60; Glucose Random 97 mg/dL (60-115); Magnesium 2.3 mg/dL (1.6-2.6); Potassium 3.9 mmol/L (3.3-5.1); Sodium 140 mmol/L (135-145)
[2024-03-28 09:39] VITALS: BP 129/85
[2024-03-28] MEDS: amLODIPine Besylate 5 MG TABLET PO (09:39)
[2024-03-28 09:46] VITALS: BP 129/85; PULSE 67; RESP 16; TEMP 36.6; O2SAT 99
== END 2024-03-28 09:49 | disposition home or self-care (01) ==
PROVIDERS: Emergency Provider Emergency Medicine; PCP Internal Medicine
DX: R55 Syncope and collapse (principal); R11.2 Nausea with vomiting, unspecified; Z79.899 Other long term (current) drug therapy
CPT/HCPCS: 36415; 80048; 83735; 85025; 93005; 99283; 99284